=== PATIENT | female | born 1955 | race Two or more races ===

== ENCOUNTER 2025-01-29 05:30 | Day surgery (SDC) | payer OTHER ==
[2025-01-24 09:02] VITALS: BP 136/84
[2025-01-24 09:19] LABS: HEMATOCRIT 38.1 % (36.0-45.00); MEAN CELL VOLUME 98.4 fL (80.00-100.00); MEAN CORPUSCULAR HEMOGLOBIN 33.6 pg (27.00-32.0); MEAN CORPUSCULAR HGB CONC 34.1 g/dl (32.0-36.0); PLATELET COUNT 149 K/uL (150-450); RED BLOOD COUNT 3.87 M/uL (4.00-6.00); RED CELL DISTRIBUTION WIDTH 13.4 % (11.5-14.5); URINE APPEARANCE Clear; URINE BILIRRUBIN Negative (NEGATIVE); URINE BLOOD Negative; URINE COLOR Yellow; URINE GLUCOSE Negative (NEGATIVE); URINE KETONE Negative (NEGATIVE); URINE LEUKOCYTE Moderate; URINE NITRATE Negative; URINE PROTEIN Negative (NEGATIVE)
[2025-01-24 09:20] LABS: URINE BACTERIA 51.3 uL (0.0-1933); URINE EPITHELIAL CELLS 4.2 uL (0.0-38.8); URINE RBC 5.5 uL (0.0-20.8); URINE WBC 44.3 uL (0.0-23.2)
[2025-01-24 09:35] LABS: INR 1.05; PARTIAL THROMBOPLASTIN TIME 29.3 SECONDS (22.0-34.0); PROTHROMBIN TIME 11.4 SECONDS (9.0-11.5)
[2025-01-24 10:05] LABS: ALBUMIN 3.5 gm/dL (3.4-5.0); BILIRUBIN TOTAL 0.52 mg/dL (0.3-1.2); CALCIUM 9.2 mg/dL (8.5-10.1); CREATININE SERUM 0.74 mg/dL (0.55-1.02); GFR 78.28; GLOBULINA 4.2 G/DL (2.4-3.5); POTASSIUM 4.53 mEq/L (3.5-5.1); TOTAL PROTEIN 7.7 gm/dL (6.4-8.2)
[~2025-01-29] VITALS: Ht 160 cm; Wt 69.9 kg
[~2025-01-29 05:30] MED LIST: METFORMIN HCL1000 M2 PO
[2025-01-29] MEDS ORDERED: CIPROFLOXACIN IN 5 % DEXTROSE 400 MG/200 ML PIGGYBAG IV ONE (07:00)
[2025-01-29] MEDS ORDERED: LIDOCAINE HCL 1%/EPINEPHRINE 20ML VIAL IJ ONE (07:03)
[2025-01-29] MEDS ORDERED: BUPIVACAINE HCL/MPF 0.5% 30ML VIAL ONE (07:03)
[2025-01-29] MEDS ORDERED: MORPHINE SULFATE 2 MG/ML CARTRIDGE IV ONE (13:25)
== END 2025-01-29 14:15 | disposition home or self-care (01) ==
LOC: CIR.AMB 05:30
PROVIDERS: ATTEND Surgery
DX: K80.10 Calculus of gallbladder with chronic cholecystitis without obstruction (principal)